=== PATIENT | male | born 1955 | race Two or more races ===

== ENCOUNTER 2024-04-08 14:19 | Emergency (ER) | payer OTHER, MEDICAID ==
[~2024-04-08] VITALS: Ht 185.4 cm; Wt 146.8 kg
[2024-04-08 14:52] VITALS: BP 129/67; PULSE 89; RESP 18; O2SAT 98
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
--- NOTE | 2024-04-08 15:42 | DVH ---
CLINICAL INDICATION: INJURY TECHNIQUE: XY L SHOULDER 2+ VIEW XRAY Comparison: None FINDINGS/IMPRESSION: There is no evidence of acute fracture or dislocation. Soft tissues are unremarkable.
--- NOTE | 2024-04-08 15:42 | DVH ---
CLINICAL INDICATION: INJURY TECHNIQUE: 2 XY L FOREARM XRAY Comparison: None FINDINGS/IMPRESSION: There is no evidence of acute fracture or dislocation. Diffuse soft-tissue swelling and edema.
--- NOTE | 2024-04-08 15:43 | DVH ---
CLINICAL INDICATION: INJURY TECHNIQUE: XY L HAND 3V XRAY Comparison: None FINDINGS/IMPRESSION: There is no evidence of acute fracture or dislocation. Soft tissues are unremarkable.
--- NOTE | 2024-04-08 16:31 | DVH ---
EXAM: CT HEAD WITHOUT CONTRAST HISTORY: FALL COMPARISON: None TECHNIQUE: Axial images were obtained and reformatted in coronal and sagittal planes. All CT scans at this medical facility are performed using dose modulation techniques as appropriate t o a performed exam including the following: Automated exposure control was utilized; adjustment of th e MA and/or KV according to patient size; and use of iterative reconstruction technique. CT Dose: CTDI volume is 68 mGy. Dose-length product is 13 40 mGy*cm FINDINGS: Supratentorial Region: No evidence for large acute territorial ischemia. An old lacunar infarct is s een in central portion of the berhane. No intracranial hemorrhage is noted. Posterior Fossa: No acute abnormality. Brainstem: Unremarkable. Sellar/Suprasellar Region: Unremarkable. Ventricles, Cisterns, Sulci: Age-appropriate. Orbits: Unremarkable. Paranasal Sinuses: Unremarkable. Mastoid Air Cells: Unremarkable. Vasculature: Unremarkable. Bones/Soft Tissues: No acute abnormality. Other: None. IMPRESSION: 1. No acute intracranial process. 2. Old lacunar infarct in the central portion of the berhane.
--- NOTE | 2024-04-08 16:34 | DVH ---
EXAM: CT CERVICAL WITHOUT CONTRAST INDICATION: FALL EXAM DATE: 04/08/2024 03:55 PM COMPARISON: None TECHNIQUE: Multiple axial CT images of the cervical spine were obtained using bone algorithm. Axial a nd coronal reformatting was done. Bone and soft tissue windows were reviewed. Radiation dose Information: CT Dose: CTDI volume is 68.13 mGy. Dose-length product is 2275.19 mGy*cm Findings: There is no evidence of an acute fracture or spondylolisthesis. The vertebral body heights are well-m aintained. The craniocervical junction and dens are intact. No evidence of degenerative disc disease. No neuroforaminal narrowing. No spinal canal stenosis. There is a normal cervical lordosis. Diminutive thyroid gland. The lung apices demonstrate no acute abnormality. The paraspinal and neck s oft tissues appear within normal limits. C2-3: Normal C3-4: Normal C4-5: Normal C5-6: Normal C6-7: Normal C7-T1: Normal Impression: 1. No evidence of an acute fracture.
== END 2024-04-08 16:13 | disposition home or self-care (01) ==
LOC: ER 14:19
DX: M25.512 Pain in left shoulder (principal); M79.632 Pain in left forearm; M79.642 Pain in left hand; M79.89 Other specified soft tissue disorders; R60.9 Edema, unspecified; R20.2 Paresthesia of skin; Z86.73 Personal history of transient ischemic attack (TIA), and cerebral infarction without residual deficits; Z88.8 Allergy status to other drugs, medicaments and biological substances; Y04.2XXA Assault by strike against or bumped into by another person, initial encounter; Y93.I9 Activity, other involving external motion; Y92.89 Other specified places as the place of occurrence of the external cause; Y99.8 Other external cause status
CPT/HCPCS: 70450; 72125; 73030; 73090; 73130